=== PATIENT | male | born 1940 | race Caucasian/White ===

== ENCOUNTER 2017-05-08 20:13 | Emergency (ER) | payer MEDICARE ==
[2017-05-08 20:48] VITALS: BP 183/66; PULSE 95; RESP 18; TEMP 98.1; O2SAT 99
--- NOTE | 2017-05-08 21:33 | ED PDOC ---
HPI: Psych/Substance Abuse Time Seen by Provider: 05/08/17 21:04 Chief Complaint (Nursing): Psychiatric Evaluation Chief Complaint (Provider): Psychiatric Evaluation History Per: Patient History/Exam Limitations: no limitations Onset/Duration Of Symptoms: Mins (prior to arrival) Current Symptoms Are (Timing): Still Present Additional Complaint(s): 76 year old [place] male with previous medical history of schizophrenia, who presents to the emergency department for an evaluation of hearing "friendly" voices prior to arrival. Patient reported newly arriving to [facility] from a [facility] and currently lives at homeless intermediate. Denied suicidal or homicidal ideation PMD: none provided Past Medical History Reviewed: Historical Data, Nursing Documentation, Vital Signs Vital Signs: Last Vital Signs Temp 98.1 F 05/08/17 20:44 Pulse 95 H 05/08/17 20:44 Resp 18 05/08/17 20:44 BP 183/66 H 05/08/17 20:44 Pulse Ox 99 05/08/17 20:44 - Medical History PMH: Schizophrenia Denies: No Chronic Diseases - Surgical History Surgical History: Denies: No Surg Hx - Family History Family History: States: Unknown Family Hx - Social History Current smoker - smoking cessation education provided: Yes Alcohol: None Drugs: Denies - Allergies Allergies/Adverse Reactions: Allergies Allergy/AdvReac Type Severity Reaction Status Date / Time No Known Allergies Allergy Verified 05/08/17 20:44 Review of Systems ROS Statement: Except As Marked, All Systems Reviewed And Found Negative Psych: Positive for: Other (auditory hallucination). Negative for: Suicidal ideation (or homicidal ideation) Physical Exam - Reviewed Nursing Documentation Reviewed: Yes Vital Signs Reviewed: Yes - Physical Exam Appears: Positive for: Well, Non-toxic, No Acute Distress Head Exam: Positive for: ATRAUMATIC, NORMAL INSPECTION, NORMOCEPHALIC Skin: Positive for: Normal Color Eye Exam: Positive for: Normal appearance ENT: Positive for: Normal ENT Inspection Neck: Positive for: Normal, Painless ROM. Negative for: Decreased ROM Cardiovascular/Chest: Positive for: Regular Rate, Rhythm, Chest Non Tender Respiratory: Positive for: Normal Breath Sounds. Negative for: Decreased Breath Sounds, Wheezing, Respiratory Distress Gastrointestinal/Abdominal: Positive for: Normal Exam, Soft. Negative for: Tenderness Extremity: Positive for: Normal ROM (upper/lower). Negative for: Pedal Edema ( bilateral), Deformity Neurologic/Psych: Positive for: Alert (x3), Oriented. Negative for: Motor/ Sensory Deficits - ECG O2 Sat by Pulse Oximetry: 99 (RA) Pulse Ox Interpretation: Normal Medical Decision Making Medical Decision Making: Initial Impression: Auditory hallucination with known onset of schizophrenia Initial Plan: * Crisis evaluation Time: 22:00 Patient evaluated by social service worker. Patient is stable for discharge. Diagnosis is schizophrenia. Scribe Attestation: Documented by Majo Mcclure, acting as a scribe for Sylvester Gupta MD. Provider Scribe Attestation: All medical record entries made by the Scribe were at my direction and personally dictated by me. I have reviewed the chart and agree that the record accurately reflects my personal performance of the history, physical exam, medical decision making, and the department course for this patient. I have also personally directed, reviewed, and agree with the discharge instructions and disposition. Scribe Attestation: Documented by Stew Sweet, acting as a scribe for Sylvester Gupta MD Provider Scribe Attestation: All medical record entries made by the Scribe were at my direction and personally dictated by me. I have reviewed the chart and agree that the record accurately reflects my personal performance of the history, physical exam, medical decision making, and the department course for this patient. I have also personally directed, reviewed, and agree with the discharge instructions and disposition. Disposition - Clinical Impression Clinical Impression: Schizophrenia - Patient ED Disposition Is Patient to be Admitted: No - Disposition Disposition: Routine/Home Disposition Time: 22:00 Condition: STABLE Instructions: Schizophrenia (ED) Forms: [employer] [facility] (Japanese)
[2017-05-09] MEDS ORDERED: Insulin Regular 100 units/ml ONE (11:16)
== END 2017-05-09 00:23 | disposition home or self-care (01) ==
LOC: EDBD → H.ER 20:13
DX: F20.9 Schizophrenia, unspecified (principal); F17.200 Nicotine dependence, unspecified, uncomplicated; Z59.0 Homelessness; Z00.8 Encounter for other general examination

== ENCOUNTER 2017-05-09 05:35 | Emergency (ER) | payer MEDICARE ==
[2017-05-09 05:43] VITALS: BP 154/90; PULSE 99; RESP 16; TEMP 98.2; O2SAT 97
--- NOTE | 2017-05-09 06:18 | ED PDOC ---
HPI: General Adult Time Seen by Provider: 05/09/17 05:44 Chief Complaint (Nursing): Fever Chief Complaint (Provider): Fever History Per: Patient History/Exam Limitations: no limitations Onset/Duration Of Symptoms: Days Recently: Seen In ED Additional Complaint(s): Bruce is a 76 year old female with a history of schizophrenia who presents to the emergency department via EMS for medical evaluation. Patient was seen several hours ago by home support worker and was cleared for discharge. As per EMS, Patient was found in the building domicile. Patient denies any medical complaints. Patient admits to being homeless. PMD: Provider TBD Past Medical History Reviewed: Historical Data, Nursing Documentation, Vital Signs Vital Signs: Last Vital Signs Temp 98.2 F 05/09/17 05:40 Pulse 99 H 05/09/17 05:40 Resp 16 05/09/17 05:40 BP 154/90 H 05/09/17 05:40 Pulse Ox 97 05/09/17 05:40 - Medical History PMH: Schizophrenia - Surgical History Surgical History: No Surg Hx - Family History Family History: States: Unknown Family Hx - Social History Alcohol: None Drugs: Denies - Allergies Allergies/Adverse Reactions: Allergies Allergy/AdvReac Type Severity Reaction Status Date / Time No Known Allergies Allergy Verified 05/08/17 20:44 Review of Systems ROS Statement: Except As Marked, All Systems Reviewed And Found Negative Psych: Positive for: Other (schizophrenia) Physical Exam - Reviewed Nursing Documentation Reviewed: Yes Vital Signs Reviewed: Yes - Physical Exam Appears: Positive for: Non-toxic Head Exam: Positive for: ATRAUMATIC, NORMAL INSPECTION, NORMOCEPHALIC Skin: Positive for: Normal Color Eye Exam: Positive for: Normal appearance ENT: Positive for: Normal ENT Inspection Neck: Positive for: Normal Cardiovascular/Chest: Positive for: Regular Rate, Rhythm Respiratory: Positive for: Normal Breath Sounds. Negative for: Respiratory Distress Gastrointestinal/Abdominal: Positive for: Normal Exam Back: Positive for: Normal Inspection Extremity: Positive for: Normal ROM. Negative for: Deformity Neurologic/Psych: Positive for: Alert, Oriented - ECG O2 Sat by Pulse Oximetry: 97 (RA) Pulse Ox Interpretation: Normal Medical Decision Making Medical Decision Making: Upon provider evaluation patient is medically stable, and requires no further treatment in the ED at this time. Diagnosis is malingering syndrome Scribe Attestation: Documented by Stew Sweet, acting as a scribe for Sylvester Gupta MD Provider Scribe Attestation: All medical record entries made by the Scribe were at my direction and personally dictated by me. I have reviewed the chart and agree that the record accurately reflects my personal performance of the history, physical exam, medical decision making, and the department course for this patient. I have also personally directed, reviewed, and agree with the discharge instructions and disposition. Disposition - Clinical Impression Clinical Impression: Malingering - Patient ED Disposition Is Patient to be Admitted: No - Disposition Disposition: Routine/Home Disposition Time: 05:52 Condition: STABLE Forms: [facility] (Monegasque)
== END 2017-05-09 06:00 | disposition home or self-care (01) ==
LOC: EDBD 05:35 → H.ER 05:35
DX: Z76.5 Malingerer [conscious simulation] (principal)

== ENCOUNTER 2017-05-09 08:26 | Emergency (ER) | payer MEDICARE ==
[2017-05-09 08:29] VITALS: TEMP 98.7
[2017-05-09 09:10] VITALS: RESP 14
--- NOTE | 2017-05-09 09:21 | ED PDOC ---
HPI: General Adult Time Seen by Provider: 05/09/17 09:01 Chief Complaint (Nursing): Weakness/Neurological Deficit Chief Complaint (Provider): Weakness History Per: Patient History/Exam Limitations: no limitations Additional Complaint(s): Christiano is a 76 y/o male who was recently discharged from this facility. He was brought to the ED via EMS after they found him outside this morning. Patient complains of weakness but has no other medical complaints. PMD: None Past Medical History Reviewed: Historical Data, Nursing Documentation, Vital Signs Vital Signs: Last Vital Signs Temp 98.7 F 05/09/17 08:28 Pulse 95 H 05/09/17 09:10 Resp 14 05/09/17 09:10 BP 189/108 H 05/09/17 09:10 Pulse Ox 97 05/09/17 09:22 - Medical History PMH: Schizophrenia - Family History Family History: States: Unknown Family Hx - Allergies Allergies/Adverse Reactions: Allergies Allergy/AdvReac Type Severity Reaction Status Date / Time No Known Allergies Allergy Verified 05/08/17 20:44 Review of Systems ROS Statement: Except As Marked, All Systems Reviewed And Found Negative Constitutional: Positive for: Weakness Gastrointestinal: Negative for: Vomiting Neurological: Negative for: Headache, Dizziness Physical Exam - Reviewed Nursing Documentation Reviewed: Yes Vital Signs Reviewed: Yes - Physical Exam Appears: Positive for: Well, Non-toxic, No Acute Distress Skin: Positive for: Normal Color, Warm, DRY Eye Exam: Positive for: Normal appearance, EOMI, PERRL Cardiovascular/Chest: Positive for: Regular Rate, Rhythm Respiratory: Positive for: Normal Breath Sounds Gastrointestinal/Abdominal: Positive for: Normal Exam, Bowel Sounds, Soft - ECG O2 Sat by Pulse Oximetry: 97 (RA) Pulse Ox Interpretation: Normal Medical Decision Making Medical Decision Making: Time: 9:15 Initial Impression: Weakness --At this time no treatment is necessary. Patient is resting comfortably. Scribe~Attestation: Documented by Vito Madison, acting as a scribe for Aicha Sher Yin. Provider Scribe~Attestation: All medical record entries made by the Scribe were at my direction and personally dictated by me. I have reviewed the chart and agree that the record accurately reflects my personal performance of the history, physical exam, medical decision making, and the department course for this patient. I have also personally directed, reviewed, and agree with the discharge instructions and disposition. Disposition - Clinical Impression Clinical Impression: Homeless single person - Patient ED Disposition Is Patient to be Admitted: No Doctor Will See Patient In The: Office Counseled Patient/Family Regarding: Diagnosis, Need For Followup - Disposition Referrals: [facility] [Outside] [facility] [employer] [facility] [Outside] [facility] [Outside] Disposition: Routine/Home Disposition Time: 09:00 Condition: STABLE Forms: [facility] (Sri Lankan) - POA Present On Arrival: None
[2017-05-09] MEDS ORDERED: Sodium Chloride 0.9% 1,000 ML IV STA ×3 (09:52→11:14)
[2017-05-09 10:07] LABS: BASO % 0.7 % (0.0-2.0); EOS # 0.1 K/uL (0.0-0.7); EOS % 2.2 % (0.0-4.0); HEMOGLOBIN 13.5 g/dL (12.0-18.0); LYMPH # 1.3 K/uL (1.0-4.3); LYMPH % 22.2 % (20.0-40.0); MEAN CELL VOLUME 84.1 fl (80.0-94.0); MEAN CORPUSCULAR HEMOGLOBIN 28.1 pg (27.0-31.0); MEAN CORPUSCULAR HGB CONC 33.4 g/dL (33.0-37.0); MEAN PLATELET VOLUME 9.7 fl (7.2-11.7); MONO # 0.5 K/uL (0.0-0.8); MONO % 7.6 % (0.0-10.0); NEUT % 67.3 % (50.0-75.0); NRBC % 0.1 % (0.0-0.0); RBC 4.79 Mil/uL (4.40-5.90); RED CELL DISTRIBUTION WIDTH 12.8 % (11.5-14.5); WHITE BLOOD COUNT 5.9 K/uL (4.8-10.8)
[2017-05-09 10:24] VITALS: BP 179/81; PULSE 93; O2SAT 98
[2017-05-09 10:37] LABS: BLOOD UREA NITROGEN 17 mg/dl (9-20); CALCIUM 9.3 mg/dL (8.4-10.2); GFR AFRICAN-AMERICAN > 60; GFR NON-AFRICAN AMERICAN > 60
[2017-05-09] MEDS ORDERED: Insulin Regular 100 units/ml SC STA (11:09)
--- NOTE | 2017-05-09 16:22 | CARD ---
APPROVED REPORT EKG Measurement Heart [id number] <Conclusion> Normal sinus rhythm Minimal voltage criteria for LVH, may be normal variant Nonspecific T wave abnormality Prolonged QT Abnormal ECG
== END 2017-05-09 19:27 | disposition home or self-care (01) ==
LOC: H.ER 08:26
DX: E11.65 Type 2 diabetes mellitus with hyperglycemia (principal); Z79.4 Long term (current) use of insulin; Z59.0 Homelessness; F20.9 Schizophrenia, unspecified
CPT/HCPCS: 80048; 82948; 85025; 93005; 96372; 99285; G0480; J7040